=== PATIENT | female | born 1955 | race Caucasian/White ===

== ENCOUNTER 2017-06-05 14:17 | Inpatient (IN) | payer MEDICARE, OTHER ==
[~2017-06-05] VITALS: Ht 162.6 cm; Wt 70.5 kg
[~2017-06-05 14:17] MED LIST: QUET300T2 PO
[2017-06-05 14:48] LABS: BASOPHILS % (AUTO) 0.2 % (0.0-2.0); EOSINOPHILS % (AUTO) 1.2 % (1.0-6.0); HEMATOCRIT 43.1 % (36-46); HEMOGLOBIN 14.5 g/dL (12.0-16.0); LYMPHOCYTES # (AUTO) 1.1 K/uL (1.0-4.8); LYMPHOCYTES % (AUTO) 21.7 % (22.0-44.0); MEAN CORPUSCULAR HEMOGLOBIN 31.9 pg (26.0-34.0); MEAN CORPUSCULAR HGB CONC 33.7 G/dL (31.0-37.0); MEAN CORPUSCULAR VOLUME 95 fL (80-100); MONOCYTES # (AUTO) 0.2 K/uL (0.1-1.0); MONOCYTES % (AUTO) 3.6 % (2.0-9.0); NEUTROPHILS # (AUTO) 3.7 K/uL (1.8-7.7); NEUTROPHILS % (AUTO) 73.3 % (40.0-70.0); PLATELET COUNT (AUTO) 220 K/uL (150-450); RED BLOOD CELL COUNT(AUTO) 4.56 MIL/uL (4.00-5.20); RED CELL DISTRIBUTION WIDTH 13.4 % (11.5-14.5)
[2017-06-05 14:55] LABS: ANION GAP 11 mmol/L (8-16); CALCIUM, TOTAL 9.4 mg/dL (8.8-10.5); CARBON DIOXIDE 27 mmol/L (22-29); CHLORIDE 108 mmol/L (98-107); CREATININE 0.78 mg/dL (0.60-1.30); GLOMERULAR FILTR. RATE CALC > 60 mL/min (>60); POTASSIUM 3.7 mmol/L (3.5-5.1); SODIUM SERUM 146 mmol/L (136-145); UREA NITROGEN, BLOOD 11 mg/dL (7-18)
[2017-06-05 15:01] LABS: ALANINE AMINOTRANSFERASE 21 U/L (12-78); ALBUMIN 4.1 g/dL (3.4-5.0); ASPARTATE AMINOTRANSFERASE 28 U/L (15-37); BILIRUBIN,TOTAL 0.5 mg/dL (0.1-1.0); TOTAL PROTEIN, SERUM 7.4 g/dL (6.4-8.2)
[2017-06-05] MEDS ORDERED: HALOPERIDOL 5 MG TABLET PO PRN (15:15)
[2017-06-05] MEDS ORDERED: ZOLPIDEM TARTRATE 10 MG TABLET PO PRN (15:15)
[2017-06-05] MEDS ORDERED: LORazepam 2 MG TABLET PO PRN (15:15)
[2017-06-05 16:05] LABS: CHOL/HDL RATIO 3.1 (3.9-5.7); THYROID STIMULATING HORMONE 1.52 uIU/mL (0.36-3.74)
[2017-06-05 16:15] LABS: ADD UA MICROSCOPIC YES; APPEARANCE,URINE CLOUDY (CLEAR); GLUCOSE, URINE (UA) NEGATIVE (NEGATIVE); KETONES,URINE NEGATIVE (NEGATIVE); LEUKOCYTE ESTERASE ,URINE SMALL (NEGATIVE); OCCULT BLOOD,URINE SMALL (NEGATIVE); PH,URINE 5.5 (5.0-8.0); PROTEIN,URINE NEGATIVE (NEGATIVE)
[2017-06-05 16:19] LABS: RBC,URINE 0-2 /HPF (0-2); SQUAMOUS EPITHELIAL CELL,UR Many /LPF (None Seen)
[2017-06-05 16:59] VITALS: BP 114/75
[2017-06-05] MEDS ORDERED: INFLUENZA VIRUS VACCINE QVS 2017-18 (3YR+)/PF 60 MCG/0.5 ML SYRINGE IM ONE (18:00)
[2017-06-05] MEDS ORDERED: BACITRACIN 28.4 GM OINTMENT TP PRN (19:30)
[2017-06-05] MEDS: QUEtiapine FUMARATE 200 MG TABLET PO SCH (20:54)
[2017-06-06 01:57] VITALS: BP 117/62
[2017-06-06] MEDS ORDERED: BACITRACIN 28.4 GM OINTMENT TP PRN (08:00)
[2017-06-06] MEDS ORDERED: LOPERAMIDE HCL 2 MG CAPSULE PO PRN (08:00)
[2017-06-06] MEDS ORDERED: MAGNESIUM HYDROXIDE SUSPENSION 30 ML UDCUP PO PRN (08:00)
[2017-06-06] MEDS ORDERED: PETROLATUM,WHITE 71 GM JELLY TP PRN (08:00)
[2017-06-06] MEDS ORDERED: CloNIDine HCL 0.1 MG TABLET PO PRN (08:00)
[2017-06-06] MEDS ORDERED: ACETAMINOPHEN 325 MG TABLET PO PRN (08:00)
[2017-06-06] MEDS ORDERED: BENZOCAINE/MENTHOL LOZENGE MM PRN (08:00)
[2017-06-06] MEDS ORDERED: IBUPROFEN 600 MG TABLET PO PRN (08:00)
[2017-06-06] MEDS ORDERED: ONDANSETRON HCL 4 MG TABLET PO PRN (08:00)
[2017-06-06] MEDS ORDERED: ALBUTEROL SULFATE HFA 90 MCG/PUFF 8 GM INHALER IH PRN (08:00)
[2017-06-06] MEDS ORDERED: MAG HYDROX/AL HYDROX/SIMETH ES 30 ML SUSPENSION UDCUP PO PRN (08:00)
[2017-06-06 08:30] VITALS: BP 113/68
[2017-06-06] MEDS: NITROFURANTOIN/NITROFURAN MAC 100 MG CAPSULE [MACROBID] PO SCH ×2 (09:55→17:04)
[2017-06-06 16:27] VITALS: BP 108/64
[2017-06-06] MEDS: QUEtiapine FUMARATE 200 MG TABLET PO SCH (20:49)
[2017-06-06] MEDS: SIMVASTATIN 10 MG TABLET PO SCH (20:49)
[2017-06-07 08:37] VITALS: BP 126/83
[2017-06-07] MEDS: NITROFURANTOIN/NITROFURAN MAC 100 MG CAPSULE [MACROBID] PO SCH ×2 (09:03→17:02)
[2017-06-07 16:43] VITALS: BP 108/76
[2017-06-07] MEDS: SIMVASTATIN 10 MG TABLET PO SCH (20:34)
[2017-06-07] MEDS: QUEtiapine FUMARATE 200 MG TABLET PO SCH (20:34)
[2017-06-08 07:24] VITALS: BP 104/66
[2017-06-08] MEDS: NITROFURANTOIN/NITROFURAN MAC 100 MG CAPSULE [MACROBID] PO SCH ×2 (09:09→16:28)
[2017-06-08 09:20] VITALS: BP 114/66
[2017-06-08] MEDS ORDERED: QUEtiapine FUMARATE 100 MG TABLET PO SCH (09:30)
[2017-06-08 16:32] VITALS: BP 130/65
[2017-06-08] MEDS ORDERED: QUET100T PO (18:40)
[2017-06-08] MEDS ORDERED: QUET200T PO (18:40)
[2017-06-08] MEDS ORDERED: SIMV-259 PO (18:40)
[2017-06-08] MEDS ORDERED: MACR100 PO (18:40)
== END 2017-06-08 20:00 | disposition short-term general hospital (02) | DRG 885 ==
LOC: EMS 14:18 → B2X 15:51
DX: F20.0 Paranoid schizophrenia (principal); E87.0 Hyperosmolality and hypernatremia; R45.851 Suicidal ideations; N39.0 Urinary tract infection, site not specified; F10.10 Alcohol abuse, uncomplicated; K21.9 Gastro-esophageal reflux disease without esophagitis; K59.00 Constipation, unspecified; E78.5 Hyperlipidemia, unspecified; G47.00 Insomnia, unspecified; E86.0 Dehydration; Z59.0 Homelessness; Z28.21 Immunization not carried out because of patient refusal
CPT/HCPCS: 84439; 84443; 87086; 99285; G0480